=== PATIENT | male | born 1975 | race Caucasian/White ===

== ENCOUNTER 2016-09-22 08:27 | Day surgery (SDC) | payer OTHER ==
[~2016-09-22] VITALS: Ht 182.9 cm; Wt 91.0 kg
[~2016-09-22 08:27] MED LIST: BUPIVACAINE/PF-EPI 0.25% 1:200K ONE; NONE PER PT
[2016-09-22] MEDS ORDERED: LACTATED RINGERS 1,000 ML IV SCH (09:46)
[2016-09-22] MEDS ORDERED: OXYC1TAB7 PO (09:48)
[2016-09-22 09:49] VITALS: BP 147/82
[2016-09-22] MEDS ORDERED: LIDOCAINE 1%, 2ML SQ PRN (10:00)
[2016-09-22] MEDS ORDERED: FENTANYL PF 250 MCG/5ML ONE (10:17)
[2016-09-22] MEDS ORDERED: MIDAZOLAM 1 MG/ML, 2ML ONE (10:17)
[2016-09-22] MEDS ORDERED: PROPOFOL 10 MG/ML, 20ML ONE (10:30)
[2016-09-22] MEDS ORDERED: DEXAMETHASONE 4 MG/ML, 1ML ONE (10:30)
[2016-09-22] MEDS ORDERED: CEFAZOLIN 1,000 MG ONE (10:30)
[2016-09-22] MEDS ORDERED: ONDANSETRON 2MG/ML, 2ML ONE (10:30)
[2016-09-22] MEDS ORDERED: HYDROmorphone 1 MG/ML, 1ML IV PRN (11:00)
[2016-09-22] MEDS ORDERED: ONDANSETRON 2MG/ML, 2ML IVPush PRN ×2 (11:00→14:00)
[2016-09-22] MEDS ORDERED: ACETAMINOPHEN 325 MG TABLET PO PRN (11:00)
[2016-09-22] MEDS ORDERED: MIDAZOLAM 1 MG/ML, 2ML IV PRN (11:00)
[2016-09-22] MEDS ORDERED: METOCLOPRAMIDE 5 MG/ML, 2ML IV PRN (11:00)
[2016-09-22] MEDS ORDERED: hydrALAzine 20 MG/ML, 1ML IV PRN (11:00)
[2016-09-22] MEDS ORDERED: OXYcodone 5 MG/5 ML ORAL.SOL UDC PO PRN (11:00)
[2016-09-22] MEDS ORDERED: MEPERIDINE/PF 25MG/0.5ML IVPush PRN (11:00)
[2016-09-22] MEDS ORDERED: LABETALOL 5MG/ML, 20ML IV PRN (11:00)
[2016-09-22] MEDS ORDERED: PROMETHAZINE 25 MG/ML, 1ML IV PRN (11:00)
[2016-09-22] MEDS ORDERED: OXYcodone 5 MG/5 ML ORAL.SOL UDC ONE (12:28)
[2016-09-22] MEDS ORDERED: FENTANYL PF 100 MCG/2ML ONE (12:28)
[2016-09-22] MEDS: FENTANYL PF 100 MCG/2ML IV PRN ×2 (12:31→12:36)
[2016-09-22] MEDS ORDERED: HYDROmorphone 2 MG/ML, 1ML ONE (12:37)
[2016-09-22] MEDS ORDERED: morphine SULFATE 10 MG/ML, 1ML IVPush PRN (14:00)
[2016-09-22] MEDS ORDERED: OXYcodone/APAP 5/325MG TABLET PO PRN (14:00)
== END 2016-09-22 14:55 ==
LOC: OUT 08:27
PROVIDERS: ATTEND Orthopaedic Surgery
DX: S42.002A Fracture of unspecified part of left clavicle, initial encounter for closed fracture (principal); X58.XXXA Exposure to other specified factors, initial encounter; Y93.9 Activity, unspecified; Y92.9 Unspecified place or not applicable; Y99.9 Unspecified external cause status
CPT/HCPCS: 23515; 73000; 76000; C1713; J0690; J1100; J1170; J2250; J2405; J2704; J3010; J3490; J7120